=== PATIENT | female | born 1970 | race Caucasian/White ===

== ENCOUNTER 2020-04-14 10:29 | Emergency (ER) | payer OTHER ==
--- NOTE | 2020-04-14 10:58 | ER Document Report ---
ED Medical Screen (RME) - General Chief Complaint: Dizziness Stated Complaint: FALL/HEAD INJURY,DIZZINESS Time Seen by Provider: 04/14/20 10:43 - HPI Notes: Patient is a 49-year-old female with a hx of fibromyalgia who presents with episodes of dizziness for the past week. Patient states on she fell back off of a 4 foot ladder landing on her left shoulder and possibly hitting her head, but she is unsure. The following day she ran into a 2 x 4 piece of wood in her house is being constructed hitting the top of her head. She denies loss of consciousness but states "she saw stars". Since then she has had dizziness, difficulty with speech, and mood swings. She denies nausea and vomiting. She also reports an episode of vision loss in her right eye but states she has had these in the past and was diagnosed with "optical migraine". She reports chest tightness that has been intermittent for the past week. She denies shortness of breath, palpitations and fever. - Related Data Allergies/Adverse Reactions: No Known Allergies Allergy (Unverified 04/14/20 10:42) Physical Exam - Vital signs Vitals: Temp Pulse Resp BP Pulse Ox 98.3 F 67 20 126/65 H 100 04/14/20 10:34 04/14/20 10:34 04/14/20 10:34 04/14/20 10:34 04/14/20 10:34 - HEENT Head: Normocephalic, Atraumatic - Back Back: Tender - left paraspinal muscles. No: Vertebra tenderness - Extremities Shoulder: Normal, Nontender Course - Re-evaluation Re-evalutation: I have greeted and performed a rapid initial assessment of this patient. A comprehensive ED assessment and evaluation of the patient, analysis of test results and completion of medical decision making process will be conducted by an additional ED providers. - Vital Signs Vital signs: Temp Pulse Resp BP Pulse Ox 98.3 F 67 20 126/65 H 100 04/14/20 10:34 04/14/20 10:34 04/14/20 10:34 04/14/20 10:34 04/14/20 10:34
[2020-04-14 11:37] LABS: ABSOLUTE EOSINOPHILS # (AUTO) 0.2 10^3/uL (0.0-0.6); ABSOLUTE LYMPHOCYTES (AUTO) 1.6 10^3/uL (0.5-4.7); ABSOLUTE MONOCYTES (AUTO) 0.4 10^3/uL (0.1-1.4); ABSOLUTE NEUT (AUTO) 2.7 10^3/uL (1.7-8.2); BASOPHILS % (AUTO) 0.9 % (0-2); EOSINOPHILS % (AUTO) 3.9 % (0-6); HEMATOCRIT 38.1 % (36.0-47.0); HEMOGLOBIN 13.2 g/dL (12.0-15.5); LYMPHOCYTES % (AUTO) 32.2 % (13-45); MEAN CORPUSCULAR HEMOGLOBIN 30.7 pg (27.0-33.4); MEAN CORPUSCULAR HGB CONC 34.5 g/dL (32.0-36.0); MEAN CORPUSCULAR VOLUME 89 fl (80-97); MONOCYTES % (AUTO) 7.3 % (3-13); PLATELET COUNT 214 10^3/uL (150-450); RED BLOOD COUNT 4.29 10^6/uL (3.72-5.28); SEGMENTED NEUTROPHILS % (AUTO) 55.7 % (42-78); TOTAL CELLS COUNTED % (AUTO) 100 %; WHITE BLOOD COUNT 4.8 10^3/uL (4.0-10.5)
[2020-04-14 11:42] LABS: APPEARANCE,URINE CLEAR; BILIRUBIN,URINE NEGATIVE (NEGATIVE); COLOR,URINE STRAW; GLUCOSE, URINE NEGATIVE (NEGATIVE); KETONES,URINE NEGATIVE (NEGATIVE); LEUKOCYTE ESTERASE,URINE TRACE (NEGATIVE); NITRITE,URINE NEGATIVE (NEGATIVE); PROTEIN,URINE NEGATIVE (NEGATIVE); URINE SPECIFIC GRAVITY 1.003; UROBILINOGEN,URINE NEGATIVE mg/dL (<2.0)
[2020-04-14 11:57] LABS: ALBUMIN 4.2 g/dL (3.5-5.0); ALKALINE PHOSPHATASE 68 U/L (38-126); ANION GAP 6 (5-19); ASPARTATE AMINO TRANSFERASE 26 U/L (14-36); BILIRUBIN,TOTAL 0.6 mg/dL (0.2-1.3); BLOOD UREA NITROGEN 10 mg/dL (7-20); CARBON DIOXIDE 25 mmol/L (22-30); CHLORIDE 104 mmol/L (98-107); GLUCOSE 97 mg/dL (75-110); POTASSIUM 4.1 mmol/L (3.6-5.0); TOTAL PROTEIN 7.1 g/dL (6.3-8.2)
--- NOTE | 2020-04-14 12:14 | RADIOLOGY REPORT (SQ) ---
EXAM DESCRIPTION: CT HEAD WITHOUT IMAGES COMPLETED DATE/TIME: 04/14/2020 11:29 am REASON FOR STUDY: head injury, multiple COMPARISON: None. TECHNIQUE: Axial images acquired through the brain without intravenous contrast. Images reviewed wi th bone, brain and subdural windows. Additional sagittal and coronal reconstructions were generated. Images stored on PACS. All CT scanners at this facility use dose modulation, iterative reconstruction, and/or weight based d osing when appropriate to reduce radiation dose to as low as reasonably achievable (ALARA). [facility]: Dose Right [facility]: CareDose [facility]: Dose Right [facility]: Teradose 4D [facility]: [employer] RADIATION DOSE: CT Rad equipment meets quality standard of care and radiation dose reduction techniq ues were employed. CTDIvol: 53.2 mGy. DLP: 1070 mGy-cm. mGy. LIMITATIONS: None. FINDINGS: VENTRICLES: Normal size and contour. CEREBRUM: No masses. No hemorrhage. No midline shift. No evidence for acute infarction. Normal gra y/white matter differentiation. No areas of low density in the white matter. CEREBELLUM: No masses. No hemorrhage. No alteration of density. No evidence for acute infarction. EXTRAAXIAL SPACES: No fluid collections. No masses. ORBITS AND GLOBE: No intra- or extraconal masses. Normal contour of globe without masses. CALVARIUM: No fracture. PARANASAL SINUSES: No fluid or mucosal thickening. SOFT TISSUES: No mass or hematoma. OTHER: No other significant finding. IMPRESSION: NORMAL BRAIN CT WITHOUT CONTRAST. EVIDENCE OF ACUTE STROKE: NO. COMMENT: Quality ID # [id number]: Final reports with documentation of one or more dose reduction techniques (e.g., Automated exposure control, adjustment of the mA and/or kV according to patient size, use of iterative reconstruction technique) TECHNICAL DOCUMENTATION: JOB ID: [id number] 2010 [employer]- All Rights Reserved Reading location - IP/workstation name: [email or web address]
--- NOTE | 2020-04-14 12:14 | RADIOLOGY REPORT (SQ) ---
EXAM DESCRIPTION: CHEST SINGLE VIEW IMAGES COMPLETED DATE/TIME: 04/14/2020 11:31 am REASON FOR STUDY: chest tightness COMPARISON: None. EXAM PARAMETERS: NUMBER OF VIEWS: One view. TECHNIQUE: Single frontal radiographic view of the chest acquired. RADIATION DOSE: NA LIMITATIONS: None. FINDINGS: LUNGS AND PLEURA: No opacities, masses or pneumothorax. No pleural effusion. MEDIASTINUM AND HILAR STRUCTURES: No masses. Contour normal. HEART AND VASCULAR STRUCTURES: Heart normal in size. Normal vasculature. BONES: No acute findings. HARDWARE: None in the chest. OTHER: No other significant finding. IMPRESSION: NO ACUTE RADIOGRAPHIC FINDING IN THE CHEST. TECHNICAL DOCUMENTATION: JOB ID: [id number] 2010 [employer]- All Rights Reserved Reading location - IP/workstation name: [email or web address]
--- NOTE | 2020-04-14 12:16 | ER Document Report ---
ED General - General Chief Complaint: Dizziness Stated Complaint: FALL/HEAD INJURY,DIZZINESS Time Seen by Provider: 04/14/20 10:43 - HPI Notes: Patient is a 49-year-old female who presents to the emergency department for evaluation. She has been having intermittent dizzy and lightheaded spells. She states that the world is not hysterically spinning, but it does seem as if it is moving. She states that she was walking in a store and she noticed that her left leg was not coming down exactly right. She stated it felt almost as if the ground was wet and slippery, but she knew that it was not. She has had optical migraines in the past, diagnosed after a hospital stay outside of [place] several years ago. She states she had 1 of these the other day where she lost vision in her right eye, but states that this was not the first time this is happened. She states she has occasional numbness and tingling in her forearms and hands, has always attributed that her fibromyalgia and tension in her neck and shoulders. She states that she fell off of a ladder on , abrading her back. The neck states she hit her head on a beam in her home, but did not lose consciousness. She states she just became concerned with all the symptoms, thought she should be evaluated. She states she has had some difficu lty finding words, but this is only happened very rarely. She denies any current numbness or tingling. No difficulty seeing, speaking, swallowing. She is moving her arms and legs without difficulty. - Related Data Allergies/Adverse Reactions: No Known Allergies Allergy (Unverified 04/14/20 10:42) Home Medications: [place], turmeric Past Medical History - General Information source: Patient - Social History Smoking Status: Never Smoker Drug Abuse: None Family History: Hypertension, Malignancy - Breast cancer in mother Neurological Medical History: Reports: Hx Migraine Musculoskeletal Medical History: Reports Hx Fibromyalgia Past Surgical History: Reports: Hx Section, Other - Urethral surgery Review of Systems - Review of Systems Constitutional: No symptoms reported EENT: See HPI Cardiovascular: No symptoms reported Respiratory: No symptoms reported, Hurts to breathe Genitourinary: No symptoms reported Musculoskeletal: See HPI Skin: See HPI Neurological/Psychological: See HPI Physical Exam - Vital signs Vitals: Temp Pulse Resp BP Pulse Ox 98.3 F 67 20 126/65 H 100 12/03/20 10:34 04/14/20 10:34 04/14/20 10:34 04/14/20 10:34 04/14/20 10:34 - Notes Notes: Vital signs reviewed, please refer to chart. Head is normocephalic, atraumatic. Pupils equal round, reactive to light. Neck is supple without meningismus. Heart is regular rate and rhythm. Lungs are clear to auscultation bilaterally. Abdomen is soft, nontender, normoactive bowel sounds throughout. Extremities without cyanosis, clubbing. Posterior calves are nontender. Peripheral pulses are equal. Skin is warm and dry. Small, well-healing abrasion noted on the posterior thorax, approximately T6, without any signs of induration or fluctuance. Patient is awake, alert, oriented x3. Cranial nerves II - XII are grossly intact without focal neurological deficits. Strength is plus 5 out of 5 bilateral upper and lower extremities. Sensation is intact. Reflexes symmetrical. Intact [id number], rapid alternating movements, [id number]. Course - Re-evaluation Re-evalutation: 04/14/20 12:17 Patient presents emergency department for evaluation. She is having intermittent dizziness, difficulty with sensation to her left lower extremity, word finding difficulties. At this time she has absolutely no neurological deficits. Her symptoms seem to have been waxing and waning. We talked at length. I will do a basic work-up here, but I recommend that she may need further follow-up with possible MRI and neurology follow-up. Certainly diagnoses like multiple sclerosis remain on the differential and she voiced understanding to this. I do not believe that performing an MRI at this time would change our management immediately. She needs to be established with a primary care provider in this area. She only moved to the area 2 months ago. At this point she is relatively asymptomatic. She just wanted to be checked. Work-up here thus far is unremarkable. We will continue to monitor. 04/14/20 12:50 Laboratory investigations and imaging are unremarkable. As I explained to the patient she needs follow-up. I will give her the names of multiple primary care providers in town whom I know to be excepting patients. She is urged to follow-up with them soon as possible. She is to return to the ED with worsening or new concerning symptoms of any sort. - Vital Signs Vital signs: Temp Pulse Resp BP Pulse Ox 98.3 F 65 18 121/76 100 04/14/20 10:34 04/14/20 11:20 04/14/20 11:20 04/14/20 11:20 04/14/20 11:20 - Laboratory Result Diagrams: 04/14/20 11:14 04/14/20 11:14 Laboratory results interpreted by me: 04/14/20 04/14/20 11:14 11:14 Sodium 134.6 L Ur Leukocyte Esterase TRACE H - Diagnostic Test Radiology reviewed: Reports reviewed Radiology results interpreted by me: 04/14/20 12:50 Chest X-Ray 04/14/20 10:52 IMPRESSION: NO ACUTE RADIOGRAPHIC FINDING IN THE CHEST. Head CT 04/14/20 10:52 IMPRESSION: NORMAL BRAIN CT WITHOUT CONTRAST. EVIDENCE OF ACUTE STROKE: NO. - EKG Interpretation by Me Additional EKG results interpreted by me: 04/14/20 12:51 Sinus mechanism with a rate of 69 bpm. Normal axis and intervals. No acute ST changes concerning for ischemia or infarction. Discharge - Discharge Clinical Impression: Dizziness, Numbness and tingling Condition: Stable Disposition: HOME, SELF-CARE Instructions: Dizziness ([facility]), Numbness or Paresthesia ([facility]) Additional Instructions: No clear cause was found for your symptoms today. You need to follow-up with primary care as soon as possible. You may require referral onto neurology, MRI for further evaluation. If you develop worsening or new concerning symptoms of any sort, please return immediately to the emergency department for evaluation. Referrals: ANISH MEJIAS MD [COMMUNITY BASED STAFF] - Follow up as needed SHAILESH LEO MD [ACTIVE STAFF] - Follow up as needed
[2020-04-14 13:13] VITALS: BP 121/71
--- NOTE | 2020-04-14 17:45 | EKG REPORT ---
SEVERITY:- NORMAL ECG - SINUS RHYTHM : Confirmed by: Bang Todd MD 14-Apr-2020 17:44:48
== END 2020-04-14 13:11 | disposition home or self-care (01) ==
LOC: ER 10:29
DX: R42 Dizziness and giddiness (principal); R20.0 Anesthesia of skin; R20.2 Paresthesia of skin; R29.818 Other symptoms and signs involving the nervous system; S20.419A Abrasion of unspecified back wall of thorax, initial encounter; W11.XXXA Fall on and from ladder, initial encounter; Y93.89 Activity, other specified; Y92.009 Unspecified place in unspecified non-institutional (private) residence as the place of occurrence of the external cause; Z79.899 Other long term (current) drug therapy; Z86.69 Personal history of other diseases of the nervous system and sense organs
CPT/HCPCS: 36415; 70450; 71045; 80053; 81001; 84484; 85025; 93005; 93010; 99285